=== PATIENT | male | born 1995 | race Two or more races ===

== ENCOUNTER 2023-06-06 02:34 | Emergency (ER) | payer OTHER ==
[2023-06-06] MEDS: Ketorolac 30 MG/ML SDV IM ONE (04:31)
[2023-06-06] MEDS: Orphenadrine 60 MG/2 ML Inj IM ONE (04:33)
== END 2023-06-06 04:45 | disposition home or self-care (01) ==
LOC: VM.ED 02:34
DX: M54.50 Low back pain, unspecified (principal)
CPT/HCPCS: 70450; 72100; 96372; 99283; 99284; J1885; J2360